=== PATIENT | female | born 1950 | race African-American/Black ===

== ENCOUNTER 2017-02-04 12:59 | Emergency (ER) | payer BC, MEDICARE ==
[~2017-02-04] VITALS: Ht 165.1 cm; Wt 70.0 kg
[2017-02-04 13:01] VITALS: BP 158/83
[2017-02-04] MEDS ORDERED: GABAPENTIN 100MG CAPSULE PO ONE (15:30)
== END 2017-02-04 16:51 | disposition home or self-care (01) ==
LOC: ER 13:32
DX: M54.5 Low back pain (principal); G89.29 Other chronic pain; V59.59XA Passenger in pick-up truck or van injured in collision with other motor vehicles in traffic accident, initial encounter; Y93.89 Activity, other specified; Y92.410 Unspecified street and highway as the place of occurrence of the external cause; R03.0 Elevated blood-pressure reading, without diagnosis of hypertension; E11.40 Type 2 diabetes mellitus with diabetic neuropathy, unspecified; R20.2 Paresthesia of skin; J45.909 Unspecified asthma, uncomplicated; R53.1 Weakness; Z99.3 Dependence on wheelchair; Z88.0 Allergy status to penicillin; Z79.899 Other long term (current) drug therapy; M51.36 Other intervertebral disc degeneration, lumbar region
CPT/HCPCS: 72100; 99284

== ENCOUNTER 2018-05-11 00:12 | Emergency (ER) | payer BC ==
[~2018-05-11] VITALS: Ht 167.6 cm; Wt 79.5 kg
[2018-05-11] MEDS ORDERED: ONDANSETRON HCL 4MG/2ML VIAL IV STA (01:24)
[2018-05-11] MEDS ORDERED: KETOROLAC 30MG/ML VIAL IV STA (01:24)
[2018-05-11 02:12] LABS: BASOPHILS % 0.2 % (0.0-2.0); EOSINOPHILS % 0.2 % (0.0-5.0); HEMATOCRIT. 37.6 % (36.0-48.0); HEMOGLOBIN. 12.5 g/dL (12.0-16.0); LYMPHOCYTES % 34.3 % (20.0-50.0); MEAN CORPUSCULAR HEMOGLOBIN 27.6 pg (28.0-32.0); MEAN CORPUSCULAR VOLUME 83.2 fL (81.0-99.0); MONOCYTES % 8.7 % (2.0-8.0); NEUTROPHILS % 56.6 % (40.0-76.0); PLATELET 153 x1000/uL (130-400); RED BLOOD CELL COUNT 4.52 mill/uL (4.2-5.4); RED CELL DISTRIBUTION WIDTH 14.5 % (11.6-14.6)
[2018-05-11 02:16] LABS: CHLORIDE 106 mEq/L (98-107)
[2018-05-11 02:19] LABS: PROTHROMBIN TIME 10.7 sec (9.4-11.6)
[2018-05-11 03:45] VITALS: BP 155/58
== END 2018-05-11 05:40 | disposition home or self-care (01) ==
LOC: ER 00:12
DX: K80.80 Other cholelithiasis without obstruction (principal); D25.9 Leiomyoma of uterus, unspecified; J45.909 Unspecified asthma, uncomplicated; E11.9 Type 2 diabetes mellitus without complications; E03.9 Hypothyroidism, unspecified; Z88.0 Allergy status to penicillin
CPT/HCPCS: 36415; 71045; 74176; 76830; 76856; 80053; 82962; 83690; 84484; 85025; 85610; 99285

== ENCOUNTER 2019-01-22 08:13 | Day surgery (SDC) | payer BC ==
[~2019-01-22] VITALS: Ht 167.6 cm; Wt 54.9 kg
[~2019-01-22 08:13] MED LIST: ALBU90AE IH; CHOL4PAC5 PO; FAMO20TA8 PO; SITA100T11 PO; SODIUM CHLORIDE 0.9% 1,000 ML IV SCH; TAP5 PO
[2019-01-22 09:24] LABS: BASOPHILS % 0.1 % (0.0-2.0); HEMATOCRIT. 39.3 % (36.0-48.0); LYMPHOCYTES % 29.2 % (20.0-50.0); MEAN CORPUSCULAR HEMOGLOBIN 27.9 pg (28.0-32.0); MEAN CORPUSCULAR VOLUME 84.2 fL (81.0-99.0); MEAN PLATELET VOLUME 9.6 fl (7.4-10.4); MONOCYTES % 4.6 % (2.0-8.0); NEUTROPHILS % 66.1 % (40.0-76.0); PLATELET 148 x1000/uL (130-400); RED BLOOD CELL COUNT 4.67 mill/uL (4.2-5.4); RED CELL DISTRIBUTION WIDTH 14.2 % (11.6-14.6)
[2019-01-22 09:30] LABS: CHLORIDE 106 mEq/L (98-107)
[2019-01-22 10:15] LABS: UCG SCREEN NEGATIVE
[2019-01-22] MEDS ORDERED: MIDAZOLAM HCL 2 MG/2 ML VIAL ONE (10:51)
[2019-01-22] MEDS ORDERED: PROPOFOL 200MG/20ML VIAL IV ONE (10:51)
[2019-01-22] MEDS ORDERED: FENTANYL CITRATE/PF 50MCG/ML 2ML VIAL ONE (10:51)
[2019-01-22] MEDS ORDERED: CLINDAMYCIN 900 MG in DEXTROSE 5% WATER 50 ML IV NR (11:00)
[2019-01-22] MEDS ORDERED: DEXAMETHASONE 4MG/ML 1ML VIAL ONE (11:02)
[2019-01-22] MEDS ORDERED: ONDANSETRON HCL 4MG/2ML INJ ONE (11:02)
[2019-01-22] MEDS ORDERED: LABETALOL 5MG/ML SYR 20 MG/4 ML SYRINGE IV PRN (11:15)
[2019-01-22] MEDS ORDERED: HYDROMORPHONE HCL/PF 2MG/ML CPJ IV PRN (11:15)
[2019-01-22] MEDS ORDERED: MEPERIDINE HCL/PF 25MG/ML CPJ IV PRN (11:15)
[2019-01-22] MEDS ORDERED: ONDANSETRON HCL 4MG/2ML INJ IV PRN (11:15)
== END 2019-01-22 13:45 | disposition home or self-care (01) ==
LOC: OR 08:13
PROVIDERS: ATTEND Obstetrics & Gynecology Obstetrics
DX: N84.0 Polyp of corpus uteri (principal); E11.9 Type 2 diabetes mellitus without complications; Z88.0 Allergy status to penicillin; E03.9 Hypothyroidism, unspecified; K21.9 Gastro-esophageal reflux disease without esophagitis; J45.909 Unspecified asthma, uncomplicated; Z90.49 Acquired absence of other specified parts of digestive tract
CPT/HCPCS: 36415; 58558; 80048; 81025; 82962; 85025; 88305; 93005; J1100; J2250; J2405; J2704; J3010; J3490; J7060